=== PATIENT | male | born 1995 | race Caucasian/White ===

== ENCOUNTER 2023-02-22 11:15 | Emergency (ER) | payer OTHER ==
[~2023-02-22] VITALS: Ht 180.3 cm; Wt 104.3 kg
[2023-02-22] MEDS ORDERED: BUPROPION XL150 MG PO (11:37)
[2023-02-22] MEDS ORDERED: LAMICTAL150 MG PO (11:37)
[2023-02-22] MEDS ORDERED: ESCITALOPRAM OX20 MG PO (11:37)
== END 2023-02-22 15:29 | disposition home or self-care (01) ==
LOC: ER 11:15
DX: U07.1 COVID-19 (principal)

== ENCOUNTER 2023-07-11 05:08 | Emergency (ER) | payer OTHER ==
[~2023-07-11] VITALS: Ht 180.3 cm; Wt 99.8 kg
[~2023-07-11 05:08] MED LIST: BUPROPION XL150 MG PO; ESCITALOPRAM OX20 MG PO; LAMICTAL150 MG PO
== END 2023-07-11 07:28 | disposition home or self-care (01) ==
LOC: ER 05:08
DX: K52.89 Other specified noninfective gastroenteritis and colitis (principal); Z88.2 Allergy status to sulfonamides

== ENCOUNTER 2024-09-23 08:25 | Emergency (ER) | payer OTHER ==
[~2024-09-23] VITALS: Ht 180.3 cm; Wt 104.3 kg
== END 2024-09-23 11:13 | disposition home or self-care (01) ==
LOC: ER 08:27
DX: R53.81 Other malaise (principal); J10.1 Influenza due to other identified influenza virus with other respiratory manifestations; Z88.2 Allergy status to sulfonamides

== ENCOUNTER 2025-06-12 20:00 | Emergency (ER) | payer OTHER ==
[~2025-06-12] VITALS: Ht 180.3 cm; Wt 99.8 kg
[2025-06-12] MEDS ORDERED: ACETAMINOPHEN 500 MG GEL..CAP PO ONE (21:21)
[2025-06-12] MEDS ORDERED: FAMOTIDINE/PF 20 MG in 0.9 % SODIUM CHLORIDE 8 ML IV PUSH STA (21:27)
[2025-06-12] MEDS ORDERED: KETOROLAC TROMETHAMINE 30 MG VIAL ONE (21:28)
[2025-06-12] MEDS ORDERED: FAMOTIDINE/PF 20 MG/2 ML VIAL ONE (21:29)
[2025-06-12] MEDS ORDERED: ONDANSETRON HCL 2 MG/ML VIAL ONE ×2 (21:29→21:34)
[2025-06-12] MEDS ORDERED: KETOROLAC TROMETHAMINE 30 MG VIAL IV ONE (21:30)
[2025-06-12] MEDS ORDERED: ONDANSETRON HCL 2 MG/ML VIAL IV ONE (21:30)
[2025-06-12 21:49] LABS: BASO % 0.3 % (0.1-1.2); EOS # 0.29 (0.04-0.54); EOS % 3.4 % (0.7-7.0); LYMPH # 2.47 (1.18-3.74); LYMPH % 28.7 % (19.3-53.1); MEAN PLATELET VOLUME 8.90 fl (9.4-12.4); MONO # 0.55 (0.24-0.82); MONO % 6.4 % (4.7-12.5); NEUT # 5.26 (1.56-6.13); NEUT % 61.0 % (34.0-71.1); RED CELL DISTRIBUTION WIDTH 11.8 % (11.6-14.4)
[2025-06-12 22:11] LABS: ALT/SGPT 27.0 U/L (12-78); AST/SGOT 27.0 U/L (15-37); BILIRUBIN TOTAL 0.94 mg/dL (0.3-1.2); BUN CREA RATIO 19.0 (7.0-25.0); CREATININE SERUM 0.84 mg/dL (0.70-1.30); GFR 108.03; GLOBULINA 4.3 G/DL (2.4-3.5); GLUCOSE FASTING 103.0 mg/dL (65-100); OSMOLALITY SERUM 281.0 MOSM/KG (275-295)
[2025-06-12 22:13] LABS: BILIRUBIN,CONJUGATED 0.14 mg/dL (0.0-0.2)
[2025-06-12] MEDS ORDERED: PEPCID AC20 MG PO (22:45)
[2025-06-12] MEDS ORDERED: CARAFATE1 GM PO (22:45)
== END 2025-06-12 21:39 | disposition home or self-care (01) ==
LOC: ER 20:00
PROVIDERS: General Practice
DX: K29.70 Gastritis, unspecified, without bleeding (principal); R10.11 Right upper quadrant pain; Z88.2 Allergy status to sulfonamides; Z91.013 Allergy to seafood